=== PATIENT | female | born 1980 | race Asian ===

== ENCOUNTER → 2020-12-11 | Outpatient (CLI) | payer OTHER ==
--- NOTE | 2020-12-11 16:36 | REP ---
INDICATION: N63.10 RT BREAST LUMP. History provided on the order sheet describes a palpable abnormality at 11 o'clock in the right breast. The patient and her denied palpable lump on self exam. They describe pain in the lateral half of the right breast not present today. COMPARISON: no comparison breast imaging. TECHNIQUE: Bilateral CC and MLO) view(s) were taken. FINDINGS: Breast parenchyma is heterogeneously dense in a pattern which may inhibit the sensitivity of mammography. Mammographic images show no evidence of mass, architectural distortion, microcalcification, or worrisome skin change in either breast. Normal appearing lymph nodes are visible on the left. The Volpara volumetric breast density pattern is C. Targeted right breast ultrasound: There is a right lateral breast was scanned sonographically from 6:00 to 12:00. Heterogeneous fibroglandular background echotexture is observed. In the right axilla multiple small normal appearing lymph nodes are seen. The largest of these measures 1.1 x 1.0 x 0.6 cm. Cortical thickness is normal at 3 mm. There is central hilar hyperechoic fat. No suspicious sonographic abnormality. IMPRESSION: BI-RADS category 2 benign findings. Clinical follow-up is advised. This patient's Tyrer-Cuzick lifetime breast cancer risk assessment score is 10.8%. This mammogram was interpreted with the aid of an FDA-approved computer-aided detection system. The patient states she had a clinical breast exam in December of 2020. The patient letter being requested is M2 dense. RECOMMENDATION: Repeat screening mammography recommended 1 year (for women over 40). Clinical follow-up is advised for the palpable lump. This negative report should not dissuade one from biopsy of a palpable lump depending on its clinical characteristics. <Electronically signed by Jaron Michael > 12/11/20 [id number]
== END ==
LOC: M WHC 14:57
PROVIDERS: ATTEND Pediatrics
DX: N63.10 Unspecified lump in the right breast, unspecified quadrant (principal)
CPT/HCPCS: 76642; 77066; G0279

== ENCOUNTER → 2021-01-12 | Outpatient (REF) | payer OTHER ==
[2021-01-12 14:08] LABS: BASO % 0.6 % (0.0-1.0); EOS # 0.2 10^3/uL (0.0-0.5); EOS % 2.4 % (0.0-3.0); HEMATOCRIT 44.4 % (36.0-47.0); HEMOGLOBIN 14.6 g/dl (12.0-15.5); LYMPH # 2.8 10^3/uL (1.5-5.0); LYMPH % 41.3 % (24.0-44.0); MEAN CORPUSCULAR HGB CONC 32.9 g/dl (32.0-36.5); MEAN CORPUSCULAR VOLUME 91.4 fl (80.0-96.0); MONO # 0.5 10^3/uL (0.0-0.8); MONO % 7.9 % (2.0-8.0); NEUTROPHILS # 3.2 10^3/uL (1.5-8.5); NEUTROPHILS % 47.7 % (36.0-66.0); PLATELET COUNT, AUTOMATED 272 10^3/uL (150-450); RED BLOOD COUNT 4.86 10^6/uL (4.00-5.40); WHITE BLOOD COUNT 6.7 10^3/uL (4.0-10.0)
[2021-01-12 14:57] LABS: ALBUMIN 4.1 GM/DL (3.2-5.2); ALT/SGPT 18 U/L (12-78); BILIRUBIN,TOTAL 0.4 MG/DL (0.2-1.0); BLOOD UREA NITROGEN 11 MG/DL (7-18); CALCIUM LEVEL 9.1 MG/DL (8.5-10.1); CARBON DIOXIDE LEVEL 30 MEQ/L (21-32); CHLORIDE LEVEL 106 MEQ/L (98-107); CHOLESTEROL LEVEL 179 MG/DL (<200); CHOLESTEROL RISK RATIO 2.486 (<5); CREATININE FOR GFR 0.54 MG/DL (0.55-1.30); GLOMERULAR FILTRATION RATE > 60.0 (>60); GLUCOSE, FASTING 84 MG/DL (70-100); HDL CHOLESTEROL 72 MG/DL (>40); LDL CHOLESTEROL 89 MG/DL (<100); NON-HDL-C 107 MG/DL; POTASSIUM SERUM 4.1 MEQ/L (3.5-5.1); SODIUM LEVEL 140 MEQ/L (136-145); TOTAL 25(OH) VITAMIN D 17.5 NG/ML (30.0-100.0); TOTAL PROTEIN 7.6 GM/DL (6.4-8.2); TRIGLYCERIDES LEVEL 90 MG/DL (<150)
== END ==
LOC: M LAB REF 12:35
PROVIDERS: ATTEND Pediatrics
DX: Z00.00 Encounter for general adult medical examination without abnormal findings (principal); Z12.4 Encounter for screening for malignant neoplasm of cervix

== ENCOUNTER → 2021-03-31 | Outpatient (REF) | payer OTHER | LOC: M LAB REF 18:29 | PROVIDERS: ATTEND Pediatrics | DX: N76.0 Acute vaginitis (principal) ==

== ENCOUNTER 2021-05-24 15:47 | Emergency (ER) | payer OTHER ==
[2021-05-24 15:47] VITALS: BP 125/75
[2021-05-24 16:55] LABS: BASO % 0.1 % (0.0-1.0); EOS % 0.3 % (0.0-3.0); HEMATOCRIT 41.5 % (36.0-47.0); HEMOGLOBIN 13.6 g/dl (12.0-15.5); LYMPH # 1.6 10^3/uL (1.5-5.0); LYMPH % 11.7 % (24.0-44.0); MEAN CORPUSCULAR HEMOGLOBIN 29.1 pg (27.0-33.0); MEAN CORPUSCULAR HGB CONC 32.8 g/dl (32.0-36.5); MEAN CORPUSCULAR VOLUME 88.7 fl (80.0-96.0); MONO # 0.9 10^3/uL (0.0-0.8); MONO % 6.6 % (2.0-8.0); NEUTROPHILS # 11.1 10^3/uL (1.5-8.5); NEUTROPHILS % 80.9 % (36.0-66.0); PLATELET COUNT, AUTOMATED 275 10^3/uL (150-450); RED BLOOD COUNT 4.68 10^6/uL (4.00-5.40); WHITE BLOOD COUNT 13.7 10^3/uL (4.0-10.0)
[2021-05-24 17:24] LABS: ALBUMIN 3.9 GM/DL (3.2-5.2); ALT/SGPT 17 U/L (12-78); BILIRUBIN,DIRECT 0.1 MG/DL (0.0-0.2); BILIRUBIN,TOTAL 0.4 MG/DL (0.2-1.0); BLOOD UREA NITROGEN 8 MG/DL (7-18); CALCIUM LEVEL 8.9 MG/DL (8.5-10.1); CARBON DIOXIDE LEVEL 31 MEQ/L (21-32); CHLORIDE LEVEL 105 MEQ/L (98-107); CREATININE FOR GFR 0.62 MG/DL (0.55-1.30); GLOMERULAR FILTRATION RATE > 60.0 (>58); GLUCOSE, FASTING 89 MG/DL (70-100); LIPASE 79 U/L (73-393); POTASSIUM SERUM 3.7 MEQ/L (3.5-5.1); SODIUM LEVEL 140 MEQ/L (136-145); TOTAL PROTEIN 7.9 GM/DL (6.4-8.2)
--- NOTE | 2021-05-24 17:49 | REP ---
INDICATION: constipation, supra pubic pain COMPARISON: None. TECHNIQUE: Supine view of the abdomen and pelvis. FINDINGS: Moderate to significant fecal stasis is appreciated and consistent with the given history of constipation. No evidence for bowel obstruction/perforation. No organomegaly. No abnormal calcifications. Skeletal structures intact. IMPRESSION: Moderate to significant fecal stasis. <Electronically signed by Rory Hutton > 05/24/21 [id number]
[2021-05-24 19:15] LABS: GC DNA AMPLIFICATION NEGATIVE (NEGATIVE)
[2021-05-24] MEDS ORDERED: PHENAZOPYRIDINE 100 MG TAB PO ONE (19:20)
[2021-05-24] MEDS ORDERED: CIPROFLOXACIN 500MG TABLET PO ONE (19:20)
[2021-05-24] MEDS ORDERED: POLYETHYLENE GLYCOL (MIRALAX) 238GM BOTTLE PO ONE (19:20)
[2021-05-24] MEDS ORDERED: KETOROLAC 30 MG/ML 1ML VIAL IV ONE (19:20)
[2021-05-24] MEDS ORDERED: MIRA3350 PO (19:28)
[2021-05-24] MEDS ORDERED: PYRI1TAB5 PO (19:28)
[2021-05-24] MEDS ORDERED: CIPR-249 PO (19:28)
[2021-05-24] MEDS ORDERED: NAPR-837 PO (19:28)
== END 2021-05-24 20:02 | disposition home or self-care (01) ==
LOC: M ED 15:47
DX: N39.0 Urinary tract infection, site not specified (principal); M54.5 Low back pain; K59.00 Constipation, unspecified; Z79.899 Other long term (current) drug therapy
CPT/HCPCS: 74018; 80048; 80076; 81001; 83690; 85025; 87088; 87186; 87210; 87661; 96374; 99283; J1885